=== PATIENT | male | born 1975 | race Caucasian/White ===

== ENCOUNTER 2017-12-14 00:03 | Emergency (ER) | payer OTHER, SELFPAY ==
[2017-12-14 00:04] VITALS: BP 152/109; PULSE 78; RESP 20; TEMP 36.6; O2SAT 100; BMI 34.4
[2017-12-14] MEDS: Fluorescein 1 MG STRIP 1 STRIP EACH EYE (01:29)
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
[2017-12-14] MEDS: Tetracaine 0.5% Ophthalmic Bottle 1 DRP EACH EYE (02:19)
[2017-12-14] MEDS: Erythromycin Base 1 OPTH.TUBE 1 APPLIC EACH EYE (02:24)
[2017-12-14 02:28] VITALS: PULSE 86; RESP 16; O2SAT 98
== END 2017-12-14 02:28 | disposition home or self-care (01) ==
PROVIDERS: Emergency Provider Emergency Medicine; Family Provider Family Medicine; PCP Family Medicine
DX: H16.133 Photokeratitis, bilateral (principal); W89.8XXA Exposure to other man-made visible and ultraviolet light, initial encounter; Y93.89 Activity, other specified; Y92.9 Unspecified place or not applicable; Y99.9 Unspecified external cause status; I10 Essential (primary) hypertension; Z79.899 Other long term (current) drug therapy
CPT/HCPCS: 99282

== ENCOUNTER → 2018-04-29 08:04 | Outpatient (CLI) | payer BC, SELFPAY ==
--- NOTE | 2018-05-02 10:05 | PFT ---
INTRODUCTION: The patient is a 43-year-old male that presents for pulmonary function testing secondary to a diagnosis of asthma. Respiratory therapy reports good patient effort. Bronchodilators were used during testing. INTERPRETATION: Forced expiration spirometry demonstrates no evidence of a large airways obstructive ventilatory defect. There was no significant response to aerosolized bronchodilators. Spirograms are of good quality and plateau normally. Body plethysmography was performed and reveals a decreased TLC to 4.43 L, 72% of predicted, indicative of a mild restrictive ventilatory defect. The remainder of the lung volumes are symmetrically reduced. Diffusing capacity by single breath CO is within normal limits at 81% of predicted. IMPRESSION: These pulmonary function studies demonstrate the presence of a mild restrictive ventilatory defect, with a symmetrically reduced ERV, which may be secondary to an underlying body habitus effect. There are no previous pulmonary function studies available for comparison.
== END ==
LOC: PSN 08:06
PROVIDERS: Family Provider Family Medicine; PCP Family Medicine; Visit Provider Family Medicine
DX: J45.909 Unspecified asthma, uncomplicated (principal)
CPT/HCPCS: 94060; 94726; 94729

== ENCOUNTER → 2018-06-30 16:29 | Outpatient (CLI) | payer BC, SELFPAY ==
[2018-06-30 17:35] LABS: Absolute Lymphocyte Count 1.98 X10^3/ul (0.83-4.51); Absolute Neutrophil Count 3.7 X10^3/uL (2.0-7.7); Basophil# 0.02 X10^3/uL; Basophil% 0.3 % (0-1); Eosinophil# 0.11 X10^3/uL; Eosinophils% 1.8 % (0-5); Hemoglobin 14.3 g/dl (13.0-16.5); Lymphocyte # 1.98 X10^3/ul (4.0); Lymphocyte % 31.8 % (19-41); Mean Corp Hgb Conc 34.9 g/gl (32-36); Mean Corpuscular Hgb 31.8 pg (27.0-32.0); Mean Corpuscular Volume 91.3 fL (80-94); Mean Platelet Vol. 9.4 fl (6.2-12.0); Monocyte# 0.44 X10^3/uL; Monocyte% 7.1 % (0-10); Neutrophil # 3.65 X10^3/uL (2.7-7.7); Neutrophil % 58.7 % (47-70); Platelet Count 274 K/mm3 (150-450); RBC Distribution Width CV 11.9 % (11.6-14.6); RBC Distribution Width SD 38.8 fl (35.1-43.9); Red Blood Count 4.49 M/mm3 (4.6-6.2); White Blood Count 6.2 K/mm3 (4.4-11.0)
[2018-06-30 18:05] LABS: POSITIVE COUNT NO; POSITIVE DIFFERENTIAL NO; POSITIVE MORPHOLOGY NO
[2018-06-30 18:08] LABS: ALB/GLOB Ratio 1.1 RATIO (0.9-2.4); AST(SGOT) 24 U/L (15-37); Alanine Aminotransfer ALT/SGPT 51 U/L (16-61); Alkaline Phosphatase 47 U/L (45-117); Anion Gap 8 (5-15); BUN 19 mg/dL (7-18); Chloride 106 mmol/L (98-107); Cholesterol 211 mg/dL (200); Creatinine, Serum 0.95 mg/dL (0.70-1.30); EST Glomerular Filtration Rate 92 mL/min (>60); Est Glom Filt Rate - Afr Amer 111 mL/min (>60); Globulin 3.5 g/dL (2.2-4.2); Glucose 104 mg/dL (74-106); High Density Lipoprotein 34 mg/dL; Potassium 4.2 mmol/L (3.5-5.1); Protein, Total 7.5 g/dL (6.4-8.2); Sodium Level 141 mmol/L (136-145); Triglycerides 285 mg/dL; Very Low Density Lipoprotein 57 mg/dL (5-40)
== END ==
PROVIDERS: Family Medicine; Family Provider Family Medicine; PCP Family Medicine; Visit Provider Family Medicine
DX: R07.9 Chest pain, unspecified (principal)
CPT/HCPCS: 36415; 80053; 80061; 85025

== ENCOUNTER → 2018-07-22 12:04 | Outpatient (CLI) | payer BC, SELFPAY ==
--- NOTE | 2018-07-22 15:38 | STRESSREP ---
Stress Test Report Exercise stress test. 43-year-old man with a history of chest pain. Stress protocol: Resting EKG demonstrates normal sinus rhythm with a rate of 68 bpm normal intervals are noted resting blood pressure 118/78 mmHg. The patient exercised according to regular Jose protocol for total duration of 10 minutes completing 1 minute into stage IV of the Jose protocol the maximum heart rate attained was 134 bpm which was 75% of maximum predicted heart rate the maximum workload was 11.7 metabolic equivalents. At rest there were no ST or T wave changes noted suggest ischemia at peak exercise no ST or T wave changes were noted suggest ischemia. No arrhythmias were noted. The resting blood pressure was 118/78 with a peak blood pressure 148/68. Conclusion: Stress test with no EKG criteria for ischemia at a high workload Patient did not attain 85% of the maximum predicted heart rate. Excellent exercise capacity
== END ==
LOC: CVS 12:04
PROVIDERS: Family Provider Family Medicine; PCP Family Medicine; Referring Provider Family Medicine; Visit Provider Family Medicine
DX: R07.9 Chest pain, unspecified (principal)
CPT/HCPCS: 93017

== ENCOUNTER → 2018-08-29 13:32 | Outpatient (CLI) | payer BC, SELFPAY ==
[2018-08-29 17:32] LABS: Absolute Lymphocyte Count 2.67 X10^3/ul (0.83-4.51); Absolute Neutrophil Count 4.1 X10^3/uL (2.0-7.7); Basophil# 0.04 X10^3/uL; Basophil% 0.5 % (0-1); Eosinophil# 0.14 X10^3/uL; Eosinophils% 1.8 % (0-5); Hematocrit 44.3 % (40-54); Hemoglobin 14.8 g/dl (13.0-16.5); Lymphocyte # 2.67 X10^3/ul (4.0); Lymphocyte % 34.9 % (19-41); Mean Corp Hgb Conc 33.4 g/gl (32-36); Mean Corpuscular Hgb 31.2 pg (27.0-32.0); Mean Corpuscular Volume 93.3 fL (80-94); Mean Platelet Vol. 9.7 fl (6.2-12.0); Monocyte% 9.1 % (0-10); Neutrophil # 4.08 X10^3/uL (2.7-7.7); Neutrophil % 53.3 % (47-70); POSITIVE COUNT NO; POSITIVE DIFFERENTIAL NO; POSITIVE MORPHOLOGY NO; Platelet Count 369 K/mm3 (150-450); RBC Distribution Width CV 12.3 % (11.6-14.6); RBC Distribution Width SD 41.3 fl (35.1-43.9); Red Blood Count 4.75 M/mm3 (4.6-6.2); White Blood Count 7.7 K/mm3 (4.4-11.0)
[2018-08-29 17:49] LABS: Vitamin B12 438 pg/mL (211-911)
[2018-08-29 17:59] LABS: ALB/GLOB Ratio 1.3 RATIO (0.9-2.4); AST(SGOT) 22 U/L (15-37); Alanine Aminotransfer ALT/SGPT 45 U/L (16-61); Albumin, Serum 4.4 g/dL (3.2-5.0); Alkaline Phosphatase 54 U/L (45-117); Anion Gap 10 (5-15); BUN 18 mg/dL (7-18); BUN/Creat Ratio 19.2 RATIO (10-20); Calcium,Total 9.3 mg/dL (8.5-10.1); Chloride 103 mmol/L (98-107); Creatinine, Serum 0.94 mg/dL (0.70-1.30); EST Glomerular Filtration Rate 93 mL/min (>60); Est Glom Filt Rate - Afr Amer 113 mL/min (>60); Globulin 3.5 g/dL (2.2-4.2); Glucose 82 mg/dL (74-106); Potassium 4.8 mmol/L (3.5-5.1); Protein, Total 7.9 g/dL (6.4-8.2); Sodium Level 141 mmol/L (136-145)
== END ==
PROVIDERS: Family Provider Family Medicine; PCP Family Medicine; Visit Provider Family Medicine
DX: D64.9 Anemia, unspecified (principal); R06.2 Wheezing
CPT/HCPCS: 36415; 80053; 82607; 82746; 85025

== ENCOUNTER 2018-12-01 10:32 | Emergency (ER) | payer OTHER, SELFPAY ==
[2018-12-01 10:37] VITALS: BP 147/92; PULSE 87; RESP 15; TEMP 36.7; O2SAT 97; BMI 33.4
--- NOTE | 2018-12-01 11:02 | EKG12_ITS ---
Test Reason : CP Blood Pressure : / mmHG Vent. Rate : 082 BPM Atrial Rate : 082 BPM P-R Int : 138 ms QRS Dur : 090 ms QT Int : 378 ms P-R-T Axes : 020 012 038 degrees QTc Int : 441 ms Normal sinus rhythm with sinus arrhythmia Normal ECG Confirmed by JOSE D TURCIOS, JENNIFER ([id number]), editor map GUILLERMINA PALOMO ([id number]) on 12/05/2018 9:28:27 AM Referred By: YUDI Confirmed By:JENNIFER JEFFERY MD
--- NOTE | 2018-12-01 11:02 | CT_ITS ---
STUDY: CT CERVICAL SPINE WITHOUT CONTRAST REASON FOR EXAM: Male, 43 years old. Sudden upper back and lower cervical pain while lifting a heavy object. RADIATION DOSAGE (If Supplied By Facility): CTDIvol = ( 31.41 ) mGy, DLP = ( 617.75 ) mGycm TECHNIQUE: High resolution transaxial imaging was performed without contrast material. Sagittal and coronal images were reconstructed. Individualized dose optimization techniques were used for this CT. COMPARISON: None FINDINGS: Normal craniovertebral junction. Normal anterior atlantoaxial articulation. Normal odontoid process. Normal cervical lordosis. Normal vertebral bodies and posterior osseous elements. C2-3: Normal endplates. Normal disc height and morphology. Normal central canal and intervertebral neuroforamina. C3-4: Normal endplates. Normal disc height and morphology. Normal central canal and intervertebral neuroforamina. C4-5: Normal endplates. Normal disc height and morphology. Normal central canal and intervertebral neuroforamina. C5-6: Mild anterior spondylosis. Normal disc height and morphology. Normal central canal and intervertebral neuroforamina. C6-7: Normal endplates. Normal disc height and morphology. Normal central canal and intervertebral neuroforamina. C7-T1: Normal endplates. Normal disc height and morphology. Normal central canal and intervertebral neuroforamina. Normal visualized soft tissue structures. CT/Spine Cervical without Contras IMPRESSION: Normal unenhanced CT examination of the cervical spine. Electronically Signed: Louis Watson, at 12:39 EDT , Service support ,
--- NOTE | 2018-12-01 11:04 | ED.DCSUM_ITS ---
- ER Visit Summary Date of Service: 12/01/18 Chief Complaint: Neck pain History of Present Illness: The patient is a 43 M who presents with neck pain. Started today. He was lifting a 150 pound object at work when he had a sharp pain in his neck that radiated down the left arm. He went to the [facility] and when he stood up he got dizzy and his blood pressure elevated so they sent him here. Patient does have a history of hypertension. He still continues to have tingling and numbness of the left arm. Pain is worse when he moves his neck. He does have some pain in the left upper part of his chest which is worse with movement. Physical Examination: Vital signs reviewed. HEENT exam unremarkable. Heart is regular rate and rhythm without murmurs. Lungs are clear to auscultation. His chest is tender in the left upper portion. Abdomen is soft and nontender. Extremities reveal no edema. He has diffuse cervical spine tenderness to palpation. Peripheral pulses are equal. Skin exam normal. Neurologic exam normal. His strength and sensation are equal. Test Results: EKG is normal sinus rhythm with a rate of 82. No ST changes. CAT scan of the cervical spine is normal Emergency Department Course and Treatment: Patient was given oxycodone for pain. CAT scan reveals no acute findings. His pain is reproducible in his chest and feels likely a strain. Patient will be discharged with naproxen for pain. He will follow-up with his PCP Treatment Plan: [] Disposition: Discharge Impression: Cervical strain This note was generated with [employer] dictation software. It may contain incorrect words, spelling, and punctuation that were not noted in review of the chart prior to signing ED Disposition - Plan for ED Patient: Referrals: Rodrigo Rowell MD [Primary Care Provider] -
[2018-12-01] MEDS: oxyCODONE 5 MG Tablet PO (11:31)
--- NOTE | 2018-12-01 12:51 | ED.DEP ---
ED Disposition - Plan for ED Patient: Disposition: Home or Assisted Living Instructions: ED Neck Back Pain General Prescriptions: Naproxen [Naprosyn] 500 mg PO BID PRN #20 tab Referrals: Rodrigo Rowell MD [Primary Care Provider] -
[2018-12-01 13:05] VITALS: RESP 14
== END 2018-12-01 13:08 | disposition home or self-care (01) ==
PROVIDERS: Emergency Provider Emergency Medicine; Family Provider Family Medicine; PCP Family Medicine
DX: S16.1XXA Strain of muscle, fascia and tendon at neck level, initial encounter (principal); X50.0XXA Overexertion from strenuous movement or load, initial encounter; Y93.9 Activity, unspecified; Y92.89 Other specified places as the place of occurrence of the external cause; Y99.0 Civilian activity done for income or pay; I10 Essential (primary) hypertension; R42 Dizziness and giddiness; R20.0 Anesthesia of skin; R20.2 Paresthesia of skin; Z79.899 Other long term (current) drug therapy
CPT/HCPCS: 72125; 93005; 99284

== ENCOUNTER 2019-01-19 13:38 | Emergency (ER) | payer OTHER, SELFPAY ==
[2019-01-19 13:40] VITALS: BP 143/96; PULSE 103; RESP 18; TEMP 36.7; O2SAT 95; BMI 33.0
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
--- NOTE | 2019-01-19 14:39 | ED.VISSUMM ---
- ER Visit Summary Date of Service: 01/19/19 Chief Complaint: [] History of Present Illness: The patient is a 43 M [] Physical Examination: [] Test Results: [] Emergency Department Course and Treatment: [] Treatment Plan: [] Disposition: [] Impression: [] This note was generated with [employer] dictation software. It may contain incorrect words, spelling, and punctuation that were not noted in review of the chart prior to signing ED Disposition - Plan for ED Patient: Instructions: ED Headache Rebound, ED Cephalgia Unspecified Referrals: Rodrigo Rowell MD [Primary Care Provider] -
[2019-01-19 14:42] VITALS: BP 131/92; PULSE 95; RESP 18; O2SAT 97
[2019-01-19] MEDS: 0.9% Normal Saline 1,000 ML 999 ML IV (14:42)
[2019-01-19] MEDS: proCHLORPERazine 10 MG/2 ML Vial IV (14:43)
[2019-01-19] MEDS: Morphine 4 MG/ML Syringe IV (14:45)
[2019-01-19] MEDS: DiphenhydrAMINE 50 MG/ML Syringe 25 MG IV (14:47)
[2019-01-19 16:09] VITALS: BP 184/104; PULSE 100; RESP 16; O2SAT 97
== END 2019-01-19 16:15 | disposition home or self-care (01) ==
LOC: ED 14:34
PROVIDERS: Emergency Provider Emergency Medicine; Family Provider Family Medicine; PCP Family Medicine
DX: R51 Headache (principal); R07.9 Chest pain, unspecified; R00.2 Palpitations; Z79.899 Other long term (current) drug therapy
CPT/HCPCS: 96361; 96374; 96375; 99284; J7030

== ENCOUNTER 2019-01-26 16:57 | Emergency (ER) | payer OTHER, SELFPAY ==
[2019-01-26 16:59] VITALS: BP 151/88; PULSE 104; RESP 16; TEMP 36.6; O2SAT 95; BMI 34.0
--- NOTE | 2019-01-26 17:58 | CT_ITS ---
STUDY: CT BRAIN WITHOUT CONTRAST REASON FOR EXAM: Male, 43 years old. Headache. Palpitations. RADIATION DOSAGE (If Supplied By Facility): CTDIvol = ( 44.99 ) mGy, DLP = ( 846.73 ) mGycm TECHNIQUE: Transaxial CT imaging of the brain was performed without administration of intravenous contrast material. Individualized dose optimization techniques were used for this CT. COMPARISON: January 31, 2009. FINDINGS: Normal soft tissue structures. Normal calvarium. Normal size ventricles and extra-axial spaces for the patient's age. Normal white matter tracts of the cerebral hemispheres. Normal basal ganglia and thalami. Normal brainstem. Normal cerebellum. There is no intracranial hemorrhage. There are no findings of an acute ischemic infarction. Normal visualized paranasal sinuses. CT/Brain/Head without Contrast IMPRESSION: Normal unenhanced CT scan of the brain. There is no major interval change. Electronically Signed: Shane Tamayo DO at 18:53 EDT Tel [phone], Service support ,
--- NOTE | 2019-01-26 17:59 | EKG12_ITS ---
Test Reason : Blood Pressure : / mmHG Vent. Rate : 086 BPM Atrial Rate : 086 BPM P-R Int : 148 ms QRS Dur : 086 ms QT Int : 368 ms P-R-T Axes : 027 012 026 degrees QTc Int : 440 ms Normal sinus rhythm Normal ECG When compared with ECG of 01-DEC-2018 11:27, No significant change was found Confirmed by JOSE D TURCIOS, JENNIFER ([id number]), index editor [place] ([id number]) on 02/03/2019 8:20:13 AM Referred By: MARLENI Confirmed By:JENNIFER JEFFERY MD
[2019-01-26] MEDS: 0.9% Normal Saline 1,000 ML 1000 ML IV (18:20)
[2019-01-26 18:21] LABS: Absolute Lymphocyte Count 1.73 X10^3/ul (0.83-4.51); Absolute Neutrophil Count 6.2 X10^3/uL (2.0-7.7); Basophil# 0.02 X10^3/uL; Basophil% 0.2 % (0-1); Eosinophil# 0.05 X10^3/uL; Eosinophils% 0.6 % (0-5); Hematocrit 41.9 % (40-54); Hemoglobin 14.3 g/dl (13.0-16.5); Lymphocyte # 1.73 X10^3/ul (4.0); Lymphocyte % 20.3 % (19-41); Mean Corp Hgb Conc 34.1 g/gl (32-36); Mean Corpuscular Hgb 29.8 pg (27.0-32.0); Mean Corpuscular Volume 87.3 fL (80-94); Mean Platelet Vol. 9.2 fl (6.2-12.0); Monocyte# 0.52 X10^3/uL; Monocyte% 6.1 % (0-10); Neutrophil # 6.19 X10^3/uL (2.7-7.7); Neutrophil % 72.6 % (47-70); POSITIVE COUNT NO; POSITIVE DIFFERENTIAL NO; POSITIVE MORPHOLOGY NO; Platelet Count 309 K/mm3 (150-450); RBC Distribution Width CV 12.2 % (11.6-14.6); RBC Distribution Width SD 38.1 fl (35.1-43.9); White Blood Count 8.5 K/mm3 (4.4-11.0)
--- NOTE | 2019-01-26 18:35 | ED.VIS.GEN ---
History of Present Illness Chief Complaint: Palpitations Detail of Chief Complaint: Multitude of symptoms Informant: Patient Onset: Month(s) Timing: Intermittent, Waxes and wanes Quality: Occipital headache, nausea and vomiting, lightheadedness, dizziness ... Location: Varies Current Severity: Mild Maximum Severity: Severe Worsened by: Standing Relieved by: Nothing Associated Symptoms: Read narrative Narrative: Patient is a 43-year-old male history of hypertension who has taken his medication intermittently. He was recently started on lisinopril and amlodipine. He states he feels terrible today. He describes orthostatic symptoms. He may also have vertiginous symptoms. He denies double vision, blurred vision or loss of vision. He denies trouble with speech or swallowing. He denies paresthesia, anesthesia or motor weakness. He denies shortness of breath. He is had transient 1 to 2-second central chest discomfort. He denies black or maroon stool. He denies urologic symptoms. He states he has trouble walking. He states he had a rapid heart rate. He was sent in by his primary care physician Dr. Rodrigo Rowell. Prior similar symptoms: Yes - Several months Recent Illness/Hospitalization: No - Past Medical History (1) History of hypertension Status: Acute (2) Chest pain Status: Acute (3) Dizziness Status: Acute Past Medical History - Allergies and Home Meds Allergies/Adverse Reactions: Allergies hydrocodone [From Vicodin] Adverse Reaction (Severe, Verified 12/01/18 10:48) Nausea Primary Care Physician: Rodrigo Rowell MD [Primary Care Provider] - Prior records reviewed: Yes Lives: Spouse/ Significant Other, With Family Smoking Status: Never smoker Drugs: None Review of Systems General: Reports: Malaise. Denies: Chills, Fever, Subjective, Sweats, Weight loss Eyes: Denies: Visual changes - bilaterally, Blurred Vision - bilaterally, Diplopia ENT: Denies: Bilateral ear pain, Rhinorrhea, Sore throat Cardiovascular: Reports: Chest pain, Palpitations, Heart racing Respiratory: Denies: Dyspnea, Cough, Sputum, Dyspnea on exertion, Orthopnea, Paroxysmal nocturnal dyspnea, -, - Gastrointestinal: Reports: Nausea. Denies: Abdominal pain, Vomiting, Diarrhea, Constipation, Melena, Hematochezia Genitourinary: Denies: Dysuria, Hematuria, Frequency Musculoskeletal: Reports: Myalgias. Denies: Arthralgias, Neck pain, Swelling, Extremity Pain Skin: Denies: Rash, Wounds Neurological: Reports: Headache - Occipital for several months. Denies: Parasthesia, Numbness Endocrine: Denies: Polyuria, Polydipsia Hematologic: Denies: Easy bruising, Easy bleeding Allergy: Denies: Uticaria, Swelling of the mouth, Swelling of the tongue Physical Exam Vital Signs/Narrative: Vital Signs Temp Pulse Resp BP Pulse Ox 01/26/19 16:59 97.9 F 104 H 16 151/88 H 95 Inital Vital Signs reviewed: Yes General: Well nourished, Well developed, No Acute Distress Head: Normocephalic, Atraumatic Eyes: Perrl, EOMI. Negative for: Pale conjunctiva, Scleral icterus, - - Endoscopic exam reveals normal cup-to-disc ratio and there is no evidence of papilledema. ENT: No rhinorrhea, TM's clear, Dry mucous membranes Neck: Supple, Nontender, No lymphadenopathy, No JVD Cardiovascular: Regular rhythm, No murmurs, Normal S1, Normal S2, Tachycardia Respiratory: No distress, CTA bilaterally, Chest nontender Abdomen: Soft, Nontender, Nondistended, Normal bowel sounds, No masses Rectal: Deferred Back: Nontender, Normal Inspection. Negative for: CVA tenderness Extremities: Nontender, No edema Skin: Normal color, No rash, No Trauma. Negative for: Cyanosis, Jaundice Neurological: Alert, Oriented x3, Cranial nerves II-XII grossly intact, Normal Strength, Normal Sensation, Normal DTR - With no clonus or Babinski sign., Normal Gait, - - Nose to finger was performed adequately. Romberg test was negative. [place]-Hallpike maneuver resulted in symptoms to the left but no nystagmus. The eye askew test and the hint test were negative. Psychological: Depressed Diagnostic/Tx/Re-eval Impressions Brain CT 01/26/19 17:58 IMPRESSION: Normal unenhanced CT scan of the brain. There is no major interval change. Electronically Signed: Shane Tamayo DO at 18:53 EDT Tel [phone], Service support , 01/26/19 17:58 Brain/Head without Contrast [CT] Stat Laboratory Results 01/26/19 01/26/19 18:12 18:12 WBC 8.5 RBC 4.80 Hgb 14.3 Hct 41.9 MCV 87.3 MCH 29.8 MCHC 34.1 RDW 12.2 RDW Differential 38.1 Plt Count 309 MPV 9.2 Immature Gran % (Auto) 0.200 Neut % (Auto) 72.6 H Lymph % (Auto) 20.3 [place] % (Auto) 6.1 Eos % (Auto) 0.6 Baso % (Auto) 0.2 Absolute Neuts (auto) 6.2 Absolute Lymphs (auto) 1.73 Total Counted Not Reportable Sodium 140 Potassium 3.9 Chloride 106 Carbon Dioxide 28.0 Anion Gap 6 BUN 18 Creatinine 0.83 Estim Creat Clear Calc 107.29 Est GFR (MDRD) Af Amer 129 Est GFR (MDRD) Non-Af 107 BUN/Creatinine Ratio 21.6 H Glucose 83 Calcium 9.5 - Medical Decision Making Patient with constellation of symptoms. Because he reports difficulty ambling with occipital headache will obtain CT of the head to evaluate for intracranial process. Baseline blood work was obtained to assess for endorgan injury. Believe his dizziness is secondary to orthostatic symptoms. He will receive a liter of normal saline. Will reevaluate after all tests have been obtained and resulted. Patient was informed of results at 2220. His blood pressure is improved markedly without treatment. There is no evidence of endorgan injury. He was informed CAT scan and blood work is unremarkable. He was instructed to follow-up with Dr. Rodrigo Rowell his primary care physician next week. Orthostatic vital signs were unremarkable. With normal CAT scan, negative Hallpike maneuver, negative eye askew test and negative hint test uncertain what the cause of patient's patient's dizziness. ED Disposition - Plan for ED Patient: Disposition: Home or Assisted Living Diagnosis: Recurrent occipital headache, Hypertension, Dizziness on standing Instructions: ED Dizziness UKO, ED Cephalgia Unspecified, ED HTN Established Referrals: Rodrigo Rowell MD [Primary Care Provider] - 5-7 Days
--- NOTE | 2019-01-26 18:38 | ED.DCSUM_ITS ---
History of Present Illness Chief Complaint: Palpitations Detail of Chief Complaint: Multitude of symptoms Informant: Patient Onset: Month(s) Timing: Intermittent, Waxes and wanes Quality: Occipital headache, nausea and vomiting, lightheadedness, dizziness ... Location: Varies Current Severity: Mild Maximum Severity: Severe Worsened by: Standing Relieved by: Nothing Associated Symptoms: Read narrative Narrative: Patient is a 43-year-old male history of hypertension who has taken his medication intermittently. He was recently started on lisinopril and amlodipine. He states he feels terrible today. He describes orthostatic symptoms. He may also have vertiginous symptoms. He denies double vision, blurred vision or loss of vision. He denies trouble with speech or swallowing. He denies paresthesia, anesthesia or motor weakness. He denies shortness of breath. He is had transient 1 to 2-second central chest discomfort. He denies black or maroon stool. He denies urologic symptoms. He states he has trouble walking. He states he had a rapid heart rate. He was sent in by his primary care physician Dr. Rodrigo Rowell. Prior similar symptoms: Yes - Several months Recent Illness/Hospitalization: No - Past Medical History (1) History of hypertension Status: Acute (2) Chest pain Status: Acute (3) Dizziness Status: Acute Past Medical History - Allergies and Home Meds Allergies/Adverse Reactions: Allergies hydrocodone [From Vicodin] Adverse Reaction (Severe, Verified 12/01/18 10:48) Nausea Primary Care Physician: Rodrigo Rowell MD [Primary Care Provider] - Prior records reviewed: Yes Lives: Spouse/ Significant Other, With Family Smoking Status: Never smoker Drugs: None Review of Systems General: Reports: Malaise. Denies: Chills, Fever, Subjective, Sweats, Weight loss Eyes: Denies: Visual changes - bilaterally, Blurred Vision - bilaterally, Diplopia ENT: Denies: Bilateral ear pain, Rhinorrhea, Sore throat Cardiovascular: Reports: Chest pain, Palpitations, Heart racing Respiratory: Denies: Dyspnea, Cough, Sputum, Dyspnea on exertion, Orthopnea, Paroxysmal nocturnal dyspnea, -, - Gastrointestinal: Reports: Nausea. Denies: Abdominal pain, Vomiting, Diarrhea, Constipation, Melena, Hematochezia Genitourinary: Denies: Dysuria, Hematuria, Frequency Musculoskeletal: Reports: Myalgias. Denies: Arthralgias, Neck pain, Swelling, Extremity Pain Skin: Denies: Rash, Wounds Neurological: Reports: Headache - Occipital for several months. Denies: Parasthesia, Numbness Endocrine: Denies: Polyuria, Polydipsia Hematologic: Denies: Easy bruising, Easy bleeding Allergy: Denies: Uticaria, Swelling of the mouth, Swelling of the tongue Physical Exam Vital Signs/Narrative: Vital Signs Temp Pulse Resp BP Pulse Ox 01/26/19 16:59 97.9 F 104 H 16 151/88 H 95 Inital Vital Signs reviewed: Yes General: Well nourished, Well developed, No Acute Distress Head: Normocephalic, Atraumatic Eyes: Perrl, EOMI. Negative for: Pale conjunctiva, Scleral icterus, - - Endoscopic exam reveals normal cup-to-disc ratio and there is no evidence of papilledema. ENT: No rhinorrhea, TM's clear, Dry mucous membranes Neck: Supple, Nontender, No lymphadenopathy, No JVD Cardiovascular: Regular rhythm, No murmurs, Normal S1, Normal S2, Tachycardia Respiratory: No distress, CTA bilaterally, Chest nontender Abdomen: Soft, Nontender, Nondistended, Normal bowel sounds, No masses Rectal: Deferred Back: Nontender, Normal Inspection. Negative for: CVA tenderness Extremities: Nontender, No edema Skin: Normal color, No rash, No Trauma. Negative for: Cyanosis, Jaundice Neurological: Alert, Oriented x3, Cranial nerves II-XII grossly intact, Normal Strength, Normal Sensation, Normal DTR - With no clonus or Babinski sign., Normal Gait, - - Nose to finger was performed adequately. Romberg test was negative. [place]-Hallpike maneuver resulted in symptoms to the left but no nystagmus. The eye askew test and the hint test were negative. Psychological: Depressed Diagnostic/Tx/Re-eval Impressions Brain CT 01/26/19 17:58 IMPRESSION: Normal unenhanced CT scan of the brain. There is no major interval change. Electronically Signed: Shane Tamayo DO at 18:53 EDT Tel [phone], Service support , 01/26/19 17:58 Brain/Head without Contrast [CT] Stat Laboratory Results 01/26/19 01/26/19 18:12 18:12 WBC 8.5 RBC 4.80 Hgb 14.3 Hct 41.9 MCV 87.3 MCH 29.8 MCHC 34.1 RDW 12.2 RDW Differential 38.1 Plt Count 309 MPV 9.2 Immature Gran % (Auto) 0.200 Neut % (Auto) 72.6 H Lymph % (Auto) 20.3 [place] % (Auto) 6.1 Eos % (Auto) 0.6 Baso % (Auto) 0.2 Absolute Neuts (auto) 6.2 Absolute Lymphs (auto) 1.73 Total Counted Not Reportable Sodium 140 Potassium 3.9 Chloride 106 Carbon Dioxide 28.0 Anion Gap 6 BUN 18 Creatinine 0.83 Estim Creat Clear Calc 107.29 Est GFR (MDRD) Af Amer 129 Est GFR (MDRD) Non-Af 107 BUN/Creatinine Ratio 21.6 H Glucose 83 Calcium 9.5 - Medical Decision Making Patient with constellation of symptoms. Because he reports difficulty ambling with occipital headache will obtain CT of the head to evaluate for intracranial process. Baseline blood work was obtained to assess for endorgan injury. Believe his dizziness is secondary to orthostatic symptoms. He will receive a liter of normal saline. Will reevaluate after all tests have been obtained and resulted. Patient was informed of results at 2220. His blood pressure is improved markedly without treatment. There is no evidence of endorgan injury. He was informed CAT scan and blood work is unremarkable. He was instructed to follow- up with Dr. Rodrigo Rowell his primary care physician next week. Orthostatic vital signs were unremarkable. With normal CAT scan, negative Hallpike maneuver, negative eye askew test and negative hint test uncertain what the cause of patient's patient's dizziness. ED Disposition - Plan for ED Patient: Disposition: Home or Assisted Living Diagnosis: Recurrent occipital headache, Hypertension, Dizziness on standing Instructions: ED Dizziness UKO, ED Cephalgia Unspecified, ED HTN Established Referrals: Rodrigo Rowell MD [Primary Care Provider] - 5-7 Days
[2019-01-26 18:43] LABS: Anion Gap 6 (5-15); BUN 18 mg/dL (7-18); BUN/Creat Ratio 21.6 RATIO (10-20); Calcium,Total 9.5 mg/dL (8.5-10.1); Chloride 106 mmol/L (98-107); Creatinine, Serum 0.83 mg/dL (0.70-1.30); EST Glomerular Filtration Rate 107 mL/min (>60); Est Glom Filt Rate - Afr Amer 129 mL/min (>60); Estimated Creatinine Clearance 107.29 ml/min; Glucose 83 mg/dL (74-106); Potassium 3.9 mmol/L (3.5-5.1); Sodium Level 140 mmol/L (136-145)
[2019-01-26 19:13] VITALS: BP 138/95; PULSE 88; RESP 17; O2SAT 98
[2019-01-26 19:22] VITALS: BP 148/105; BP 152/90; BP 155/90; PULSE 83; PULSE 89; PULSE 98
[2019-01-26 21:00] VITALS: BP 137/91; PULSE 81; RESP 18; O2SAT 98
[2019-01-26 22:55] VITALS: BP 137/95; PULSE 84; RESP 14; O2SAT 98
== END 2019-01-26 23:00 | disposition home or self-care (01) ==
PROVIDERS: Emergency Provider Emergency Medicine; Family Provider Family Medicine; PCP Family Medicine
DX: R51 Headache (principal); I10 Essential (primary) hypertension; R42 Dizziness and giddiness; R07.89 Other chest pain; R00.2 Palpitations; R11.2 Nausea with vomiting, unspecified; Z79.899 Other long term (current) drug therapy; Z88.5 Allergy status to narcotic agent
CPT/HCPCS: 70450; 80048; 85025; 93005; 99285; J7030; A4216

== ENCOUNTER 2019-02-17 16:00 | Outpatient (RCR) | payer OTHER, SELFPAY ==
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
--- NOTE | 2019-05-02 14:44 | HP.PT.NRP ---
HP - Discharge Summary (1) - Patient Information JEY GAO was seen in my office for initial evaluation on 01/16/19. The following Plan of Care was established for this patient: Initial Frequency: 2x /Week Initial Duration: 6 Weeks - Anticipated Interventions Patient/Client Instruction: Educate patient on: Condition, Plan of Care, Risk Factors, Benefits of Fitness Program For the Purpose of:: To improve self management Therapeutic Exercise to Include: Strength training, Body mechanics, Postural training, Flexibilty training, Passive ROM, Active ROM, Scapular Strength/Stabilization For the Purpose of:: To decrease pain, To increase ROM, To improve muscle performance and motor function, To improve ability of physical actions for home/community/work/leisure Manual Therapy Techniques to Include: Functional dry needling, Soft tissue mobilization Comment: CONSIDER DRY NEEDLING. For the Purpose of:: To decrease pain, To increase ROM, To improve nutrient delivery to tissue TENS: Yes Cryotherapy (ice pack, ice massage): Yes Thermo therapy (hot pack): Yes Ultrasound (thermal/non thermal): Yes For the Purpose of:: To decrease pain, To decrease swelling/inflammation, To increase ROM, To improve nutrient delivery to tissue This patient was last seen in our office 02/17/19. Pertinent comments regarding their Physical therapy will appear below: This patient has not returned to Physical Therapy and is appropriate to return to MD for further follow-up as needed. At this point I will be discontinuing this patient from physical therapy. I would be happy to see this patient again in the future if found appropriate by the physician. Thank you! Nadege Rodriguez, PT, Cert MDT
== END 2019-02-17 19:00 | disposition home or self-care (01) ==
LOC: PT 16:00
PROVIDERS: Family Provider Family Medicine; PCP Family Medicine; Referring Provider Family Medicine; Visit Provider Family Medicine
DX: R51 Headache (principal)
CPT/HCPCS: 97012; 97140; 97162; 97530

== ENCOUNTER → 2019-06-30 14:30 | Outpatient (CLI) | payer OTHER, SELFPAY ==
[2019-06-29 14:40] VITALS: BMI 34.0
== END ==
LOC: LABSPEC 14:33
PROVIDERS: Family Provider Family Medicine; PCP Family Medicine; Referring Provider Physician Assistant; Visit Provider Physician Assistant
DX: J02.9 Acute pharyngitis, unspecified (principal)
CPT/HCPCS: 87070

== ENCOUNTER → 2020-03-14 11:35 | Outpatient (CLI) | payer OTHER, SELFPAY ==
[2020-03-14 08:41] VITALS: BMI 34.0
== END ==
PROVIDERS: PCP Family Medicine; Visit Provider Physician Assistant Surgical
DX: Z20.828 Contact with and (suspected) exposure to other viral communicable diseases (principal)
CPT/HCPCS: 87635; G2023; U0003

== ENCOUNTER 2024-06-26 18:00 | Outpatient (RCR) | payer BC, SELFPAY | END 2024-06-26 19:00 | disposition home or self-care (01) | LOC: PT 18:00 | PROVIDERS: PCP Family Medicine | DX: M50.90 Cervical disc disorder, unspecified, unspecified cervical region (principal) | CPT/HCPCS: 97110; 97140; 97162 ==